=== PATIENT | male | born 1990 | race Caucasian/White ===

== ENCOUNTER 2024-04-24 03:33 | Emergency (ER) | payer BC ==
[~2024-04-24] VITALS: Ht 170.2 cm; Wt 113.6 kg
[2024-04-24 03:38] VITALS: TEMP 97.7
[2024-04-24] MEDS ORDERED: NS 1,000 ML IV ONE (04:00)
[2024-04-24] MEDS ORDERED: Ketorolac 30 MG/ML VIAL IV ONE (04:00)
[2024-04-24] MEDS ORDERED: Ondansetron 4 MG/2 ML VIAL IV ONE ×2 (04:00→05:00)
[2024-04-24] MEDS ORDERED: Iohexol 300 - 100 ML VIAL IV ONE (04:10)
[2024-04-24 04:12] LABS: BASO % 0.4 % (0.0-2.0); EOS # 0.1 K/mm3 (0.0-0.7); EOS % 1.8 % (0.0-4.0); GRAN # 3.5 K/mm3 (1.4-6.5); GRAN % 53.1 % (42.2-75.2); HEMATOCRIT 46.3 % (42.0-52.0); HEMOGLOBIN 15.7 g/dl (13.5-18.0); LYMPH # 2.3 K/mm3 (1.2-3.4); MEAN CELL VOLUME 85 fl (80.0-100.0); MEAN CORPUSCULAR HEMOGLOBIN 29 pg (27-31); MEAN CORPUSCULAR HGB CONC 34 g/dl (33.0-37.0); MEAN PLATELET VOLUME 10.3 fl (7.4-10.4); MONO # 0.6 K/mm3 (0.1-0.6); MONO % 9.3 % (1.7-9.3); PLATELET COUNT 251 K/mm3 (130-400); RED BLOOD COUNT 5.43 M/mm3 (4.20-5.60); REDCELL DISTRIBUTION WIDTH-CV 12.4 % (11.5-14.5)
[2024-04-24] MEDS ORDERED: NS 50 ML IV ONE (04:12)
[2024-04-24 04:30] LABS: ALBUMIN 4.1 g/dL (3.5-5.0); C-REACTIVE PROTEIN 0.41 mg/dL (0.00-0.50); POTASSIUM 3.9 mEq/L (3.5-4.5); TOTAL PROTEIN 7.5 g/dl (6.2-8.1)
[2024-04-24 04:44] LABS: BILIRUBIN,TOTAL 0.5 mg/dL (0.2-1.2); CREATININE, serum 0.91 mg/dL (0.72-1.25)
[2024-04-24] MEDS ORDERED: Morphine 4 MG/ML VIAL IV ONE (04:45)
[2024-04-24] MEDS ORDERED: oxyCODONE 5 MG TAB PO ONE (05:00)
[2024-04-24] MEDS ORDERED: NAPROSYN500 MG PO (05:12)
[2024-04-24] MEDS ORDERED: ZOFRAN ODT4 MG PO (05:12)
[2024-04-24] MEDS ORDERED: ROXICODONE 55 MG/TAB PO (05:12)
[2024-04-24] MEDS ORDERED: FLOMAX 0.40.4 MG/CAP PO (05:12)
[2024-04-24 05:33] LABS: URINE APPEARANCE CLEAR (CLEAR/HAZY); URINE BLOOD 3+ (NEGATIVE); URINE COLOR YELLOW (YELLOW); URINE GLUCOSE NEGATIVE (NEGATIVE); URINE KETONE NEGATIVE (NEGATIVE); URINE NITRATE NEGATIVE (NEGATIVE); URINE PROTEIN(semi-quant) TRACE (NEGATIVE)
[2024-04-24 06:03] VITALS: BP 120/81; PULSE 80
[2024-04-24 06:32] LABS: COLLECTION METHOD CLEAN CATCH
== END 2024-04-24 06:05 | disposition home or self-care (01) ==
LOC: COL.ER 03:33
PROVIDERS: Emergency Medicine
DX: N20.1 Calculus of ureter (principal)
CPT/HCPCS: J1885; J2270; J2405; J7030; Q9967